=== PATIENT | male | born 1955 | race Caucasian/White ===

== ENCOUNTER 2020-10-11 12:26 | Day surgery (SDC) | payer OTHER ==
[2020-10-10 09:19] LABS: BASOPHILS # (AUTO) 0.1 X10'3 (0-0.2); BASOPHILS % (AUTO) 1.1 % (0-1); EOSINOPHILS # (AUTO) 0.2 X10'3 (0-0.9); EOSINOPHILS % (AUTO) 1.9 % (0-6); HEMATOCRIT 39.7 % (42.0-52.0); HEMOGLOBIN 12.9 g/dl (14.0-17.9); LYMPHOCYTES # (AUTO) 1.2 X10'3 (1.1-4.8); LYMPHOCYTES % (AUTO) 10.5 % (21-51); MEAN CORPUSCULAR HEMOGLOBIN 28.8 PG (27.0-31.0); MEAN CORPUSCULAR HGB CONC 32.5 g/dL (33.0-36.5); MEAN CORPUSCULAR VOLUME 88.6 FL (78-98); MEAN PLATELET VOLUME 6.8 FL (7.4-10.4); MONOCYTES # (AUTO) 0.8 X10'3 (0-0.9); MONOCYTES % (AUTO) 6.9 % (2-12); NEUTROPHILS # (AUTO) 9.1 X10'3 (1.8-7.7); NEUTROPHILS % (AUTO) 79.6 % (42-75); PLATELET COUNT 338 X10'3 (140-440); RED BLOOD COUNT 4.48 X10'6 (4.70-6.10); RED CELL DISTRIBUTION WIDTH 15.7 % (11.5-14.5); WHITE BLOOD COUNT 11.4 X10'3 (4.5-11.0)
[2020-10-10 09:29] LABS: PARTIAL THROMBOPLASTIN TIME 25 SECONDS (22-32)
[2020-10-10 09:43] LABS: ALANINE AMINOTRANSFERASE 35 U/L (12-78); ALBUMIN 3.5 G/DL (3.4-5.0); ALBUMIN/GLOBULIN RATIO 0.8 (1.1-1.5); ALKALINE PHOSPHATASE 50 IU/L (46-116); ANION GAP 6 (8-16); ASPARTATE AMINO TRANSFERASE 15 U/L (10-37); BILIRUBIN,TOTAL 0.3 MG/DL (0.1-1.0); BLOOD UREA NITROGEN 9 MG/DL (7-18); BUN/CREATININE RATIO 9.2 (5.4-32.0); CALCIUM 9.4 MG/DL (8.5-10.1); CHLORIDE 105 MMOL/L (99-107); CHOL/HDL RATIO 2.1 (0.00-4.99); CHOLESTEROL 160 MG/DL (0-200); CREATININE 0.98 MG/DL (0.60-1.10); GLUCOSE 120 MG/DL (70-104); HDL CHOLESTEROL 76 MG/DL (35-60); LDL CHOLESTEROL 67 MG/DL (50-100); POTASSIUM 4.5 MMOL/L (3.5-5.1); SODIUM 142 MMOL/L (135-145); TOTAL PROTEIN 7.9 G/DL (6.4-8.2); TRIGLYCERIDES 103 MG/DL (20-135); eGFR 77 ML/MIN
[~2020-10-11] VITALS: Ht 188 cm; Wt 96.9 kg
[2020-10-11] VITALS (9 sets, daily range): BP systolic 107–139; BP diastolic 67–81
[2020-10-11] MEDS ORDERED: diphenhydrAMINE 25mg capsule PO PRN (12:50)
[2020-10-11] MEDS ORDERED: normal saline 1,000 ML IV SCH (12:50)
[2020-10-11] MEDS ORDERED: LORazepam 0.5 MG tablet PO PRN (12:50)
[2020-10-11] MEDS ORDERED: ALBU8.5H8 INH (13:00)
[2020-10-11] MEDS ORDERED: APIX5TAB3 PO (13:01)
[2020-10-11] MEDS ORDERED: CYAN100097 PO (13:03)
[2020-10-11] MEDS ORDERED: LEVO150T8 PO (13:05)
[2020-10-11] MEDS ORDERED: LOSA50TA64 PO (13:06)
[2020-10-11] MEDS ORDERED: PRED5TAB PO (13:07)
[2020-10-11] MEDS ORDERED: AMLO5TAB4 PO (13:08)
[2020-10-11] MEDS ORDERED: ATOR40TA PO (13:09)
[2020-10-11] MEDS ORDERED: OXYC-145 PO (13:10)
[2020-10-11] MEDS ORDERED: CARV25TA2 PO (13:12)
[2020-10-11] MEDS ORDERED: MOME220A2 INH (13:15)
[2020-10-11] MEDS ORDERED: OLODATEROL HCL INH (13:19)
[2020-10-11] MEDS ORDERED: LIDOcaine/PRILOcaine 5gm cream TP ONE (14:05)
[2020-10-11] MEDS ORDERED: nitroGLYCERIN-Tridil 50MG/D5W 250 ML IV ONE (15:35)
[2020-10-11] MEDS ORDERED: verapamil 2.5 mg/ml inj IV ONE (15:35)
[2020-10-11] MEDS ORDERED: midazolam 2 mg/2 ml injection ONE (15:36)
[2020-10-11] MEDS ORDERED: iohexol 350MG/ML 100ml bottle IV ONE (15:36)
[2020-10-11] MEDS ORDERED: LIDOcaine 1% (10mg/ml)w/preservative injection 20ml MDV ONE (15:36)
[2020-10-11] MEDS ORDERED: heparin 1,000unit/ml 10ml vial 10 ML ONE (15:36)
[2020-10-11] MEDS ORDERED: iohexol 350 MG/ML 50ML vial IV ONE (15:36)
[2020-10-11] MEDS ORDERED: fentaNYL/PF 50MCG/1 ML 2ML syringe ONE ×2 (15:36→16:55)
[2020-10-11 17:24] LABS: ISTAT HGB ART 12.6 g/dl (14.0-18.0); ISTAT Hct ART 37 %PCV (42-52); ISTAT O2 SATURATION ARTERIAL 96 % (95-98); ISTAT SOURCE ART
== END 2020-10-11 20:25 | disposition home or self-care (01) ==
LOC: SSTAY O 12:26
PROVIDERS: ATTEND Internal Medicine Cardiovascular Disease
DX: R53.83 Other fatigue (principal); R06.02 Shortness of breath; I42.9 Cardiomyopathy, unspecified; I25.10 Atherosclerotic heart disease of native coronary artery without angina pectoris; I11.0 Hypertensive heart disease with heart failure; I50.22 Chronic systolic (congestive) heart failure; E78.5 Hyperlipidemia, unspecified; J44.9 Chronic obstructive pulmonary disease, unspecified; E03.9 Hypothyroidism, unspecified; Z86.711 Personal history of pulmonary embolism; Z79.899 Other long term (current) drug therapy; Z79.82 Long term (current) use of aspirin; Z87.891 Personal history of nicotine dependence; Z98.890 Other specified postprocedural states; Z82.49 Family history of ischemic heart disease and other diseases of the circulatory system
CPT/HCPCS: 36415; 76937; 80053; 80061; 82803; 83880; 85014; 85025; 85610; 85730; 93005; 93460; 99152; 99153; C1760; C1769; C1894; J1644; J2001; J2250; J3010; J7030; Q0163; Q9967; A4620; A5120; A6258; C1751; J3490